=== PATIENT | male | born 1985 | race Hispanic/Latino ===

== ENCOUNTER 2017-12-28 16:17 | Emergency (ER) | payer BC, OTHER ==
[2017-12-28 16:20] VITALS: RESP 16; TEMP 98.1
--- NOTE | 2017-12-28 17:00 | ED PDOC ---
Lower Extremity Pain/Injury Time Seen by Provider: 12/28/17 16:22 Chief Complaint (Nursing): Lower Extremity Problem/Injury Chief Complaint (Provider): Lower Extremity Problem/Injury History Per: Patient History/Exam Limitations: no limitations Onset/Duration Of Symptoms: Days (x2) Current Symptoms Are (Timing): Still Present Additional Complaint(s): 32 year old male presents to the ED for evaluation of left ankle pain. Patient states that yesterday afternoon, he was walking down steps when he slipped and twisted his ankle, but denies falling. He notes worsening pain since onset, especially with ambulating or movement. Reports symptoms were unrelieved by Tylenol yesterday and Excedrin this morning, prompting his visit. Otherwise, (- ) head injury, (-) loss of consciousness, (-) prior injury to ankle. He also denies any other complaints at this time. PMD: Jeanne Nevarez Past Medical History Reviewed: Historical Data, Nursing Documentation, Vital Signs Vital Signs: Last Vital Signs Temp 98.1 F 12/28/17 16:19 Pulse 87 12/28/17 16:19 Resp 16 12/28/17 16:19 BP 136/85 12/28/17 16:19 Pulse Ox 100 12/28/17 16:19 - Medical History PMH: No Chronic Diseases - Surgical History Surgical History: No Surg Hx - Family History Family History: States: Unknown Family Hx - Social History Current smoker - smoking cessation education provided: No Alcohol: Social Drugs: Denies - Home Medications Home Medications: Ambulatory Orders Medication Instructions Recorded Naproxen 500 mg PO BID PRN #20 tab 12/28/17 traMADol [Ultram] 50 mg PO Q6 PRN #12 tab 12/28/17 - Allergies Allergies/Adverse Reactions: Allergies Allergy/AdvReac Type Severity Reaction Status Date / Time No Known Allergies Allergy Verified 12/28/17 16:19 Review of Systems ROS Statement: Except As Marked, All Systems Reviewed And Found Negative Constitutional: Negative for: Other (head injury) Musculoskeletal: Positive for: Other (left ankle pain, worse with ambulating / movement) Neurological: Negative for: Other (loss of consciousness) Physical Exam - Reviewed Nursing Documentation Reviewed: Yes Vital Signs Reviewed: Yes - Physical Exam Comments: GENERAL APPEARANCE: Patient is awake, alert, oriented x 3, in no acute distress. SKIN: Warm, dry; (-) cyanosis. LEFT LOWER EXTREMITY: (+) tenderness to medial and lateral malleolus of left ankle, (-) effusion, (-) ecchymosis, (-) erythema, (+) decreased ROM secondary to pain. (+) tenderness Achilles tendon. Negative [place] test. Sensation and capillary refill intact. (+) pulses. (-) deformity. Remainder of LE non- tender with full ROM HEART AND CARDIOVASCULAR: (-) irregularity; (-) murmur, (-) gallop. CHEST AND RESPIRATORY: (-) rales, (-) rhonchi, (-) wheezes; breath sounds equal. NEURO AND PSYCH: Mental status as above. - ECG O2 Sat by Pulse Oximetry: 100 (RA) Pulse Ox Interpretation: Normal Medical Decision Making Medical Decision Making: Time: 1622 Initial Impression: acute ankle sprain/ pain, r/o fracture Initial Plan: --Toradol 30 mg IM --Left ankle XR --Re-evaluation 1729 XR Ankle: no fracture, no dislocation, as read by PA. Spoke to podiatry resident Dr Liban Escobar, awaiting consults. Patient advised that official radiology read of XR is still pending and will call the patient if there is any discrepancy within 24 hours. 1808 FINDINGS: BONES: No acute fracture. JOINTS: Ankle mortise maintained. Talar dome intact SOFT TISSUES: Normal. OTHER FINDINGS: None. IMPRESSION: No demonstrated fracture or dislocation. 1819 Podiatry at bedside. 1919 Per crisis evaluation, patient to be placed in a short leg posterior splint and to remain nonweight bearing. Patient to be supplied with crutches and instructed on crutch walking by ED staff. Patient to follow up with Dr Santillan in office. Podiatry requests patient to be sent home with Tramadol PO. 2024 Posterior splint placed by podiatry. NV intact after placement. On re-evaluation, patient reports improvement of symptoms. On exam, patient remains AAOx3, in no acute distress. On exam, neck is supple, lungs CTA, cardiac RRR, neuro exam shows no focal findings. VSS, stable for discharge. RICE encouraged. Diagnostic results d/w the patient in great detail. Dx of acute ankle pain, ankle sprain d/w the patient. Based on history, exam and diagnostic results plan will be for discharge and outpatient follow up with ortho. Advised to follow up with primary care physician/ortho in 1-2 days without fail. Advised to take medication as prescribed. Return to the emergency room at any time for any new or worsening symptoms. Patient states he fully agrees with and understands discharge instructions. States that he agrees with the plan and disposition. Verbalized and repeated discharge instructions and plan. I have given the patient opportunity to ask any additional questions. Scribe Attestation: Documented by Dali Naik, acting as a scribe for Candelaria Reaves PA-C. Provider Scribe Attestation: All medical record entries made by the Scribe were at my direction and personally dictated by me. I have reviewed the chart and agree that the record accurately reflects my personal performance of the history, physical exam, medical decision making, and the department course for this patient. I have also personally directed, reviewed, and agree with the discharge instructions and disposition. Disposition - Clinical Impression Clinical Impression: Ankle pain, Ankle sprain - Patient ED Disposition Is Patient to be Admitted: No Counseled Patient/Family Regarding: Studies Performed, Diagnosis, Need For Followup, Rx Given - Disposition Referrals: Janelle Santillan MD [Staff Provider] - Disposition: Routine/Home Disposition Time: 20:26 Condition: STABLE Additional Instructions: FOLLOW UP WITH PMD/ORTHO IN 1-2 DAYS WITHOUT FAIL. RETURN TO ED WITH ANY NEW OR WORSENING SYMPTOMS. TAKE MEDICATION PRESCRIBED. KEEP SPLINT CLEAN AND DRY. NO WEIGHT BEARING ON AFFECTED EXTREMITY. REST ICE COMPRESS (SPLINT) ELEVATE Prescriptions: Naproxen 500 mg PO BID PRN #20 tab PRN Reason: Pain, Moderate (4-7) traMADol [Ultram] 50 mg PO Q6 PRN #12 tab PRN Reason: Pain, Severe (8-10) Instructions: Ankle Sprain Forms: [facility] (Welsh) Print Language: LATVIAN - POA Present On Arrival: None
--- NOTE | 2017-12-28 18:11 | RAD ---
PROCEDURE: Left Ankle Radiographs. HISTORY: joint pain and effusion s/p trip and fall COMPARISON: None FINDINGS: BONES: No acute fracture. JOINTS: Ankle mortise maintained. Talar dome intact SOFT TISSUES: Normal. OTHER FINDINGS: None. IMPRESSION: No demonstrated fracture or dislocation.
[2017-12-28 20:52] VITALS: BP 127/80; PULSE 75; O2SAT 96
--- NOTE | 2017-12-28 22:29 | CP.PCM.CON ---
History of Present Illness - History of Present Illness History of Present Illness: Consult notes for attending Tyrell Gould 32 y/o M patient with no PMH seen and evaluated at the bedside for pain and swelling in his left ankle. Patient states that yesterday while walking he tripped down and twisted his ankle. Patient states that he felt pain immediately. He states that the pain increased and became excruciating 8/10 on VAS scale. patient states that he can't bear weight on his left foot. Patient was setting in the bed comfortably and not in acute distress. Patient is AAO X 3. Patient denies any other pedal complaint. Patient denies any F/N/V/C or SOB recently. Review of Systems - Review of Systems Review of Systems: As Per HPI Past Patient History - Past Social History Alcohol: Social Drugs: Denies - PSYCHIATRIC Hx Substance Use: No - SURGICAL HISTORY Hx Surgeries: No Meds Home Medications: Home Medication List Medication Instructions Recorded Confirmed Type Naproxen 500 mg PO BID PRN #20 tab 12/28/17 Rx traMADol [Ultram] 50 mg PO Q6 PRN #12 tab 12/28/17 Rx Allergies/Adverse Reactions: Allergies Allergy/AdvReac Type Severity Reaction Status Date / Time No Known Allergies Allergy Verified 12/28/17 16:19 Physical Exam - Constitutional Appears: Well, Non-toxic, No Acute Distress - Head Exam Head Exam: ATRAUMATIC, NORMOCEPHALIC - Extremities Exam Additional comments: Lower extremity focused exam: Vasc: DP/PT 2/4 b/l. Cap refill < 3 sec in all digits. Temp gradient warm to cool. Left perimalleolar non pitting edema. Neuro: Protective and gross sensation are intact. Derm: No open lesions, No clinical signs of active bacterial infection. Msk: Pain on palpating the left medial and lateral malleoli. Pain and guarding with left ankle ROM specially with inversion/eversion. - Neurological Exam Neurological exam: Alert, Oriented x3 - Psychiatric Exam Psychiatric exam: Normal Affect, Normal Mood Results - Vital Signs Recent Vital Signs: Last Vital Signs Temp 98.1 F 12/28/17 16:19 Pulse 75 12/28/17 20:51 Resp 16 12/28/17 20:51 BP 127/80 12/28/17 20:51 Pulse Ox 96 12/28/17 20:51 Assessment & Plan - Assessment and Plan (Free Text) Assessment: 32 Y/OM patient evaluated for Left ankle sprain. Plan: Patient seen and evaluated in the ED. Plan discussed in details with attending Tyrell Gould X-ray results reviewed and it shows No osseous deformity. Posterior splint applied for the Left LE. Patient instructed to be NWB and to use crutches for ambulation. Patient instructed to use Tylenol for pain. Patient instructed to elevate his leg and apply icing. Patient expressed verbal understanding. Patient to F/U in [facility]. - Date & Time Date: 12/28/17 Time: 22:32
== END 2017-12-28 20:51 | disposition home or self-care (01) ==
LOC: H.ER 16:17
DX: S93.402A Sprain of unspecified ligament of left ankle, initial encounter (principal); W01.0XXA Fall on same level from slipping, tripping and stumbling without subsequent striking against object, initial encounter
CPT/HCPCS: 29515; 73610; 96372; 99285; J1885